=== PATIENT | female | born 1950 | race American Indian/Alaskan Native ===

== ENCOUNTER 2017-03-27 09:51 | Outpatient (CLI) | payer MEDICAID ==
--- NOTE | 2017-03-27 10:40 | Cat Scan Report ---
Cranial CT without contrast. History: Breast cancer. Findings: There is mild cerebellar atrophy. Otherwise the posterior fossa is unremarkable. The ventricles are normal in size and contour. There are no masses or extra-axial collections. Mild cortical atrophy is present. The calvarium is intact. Impression: Cerebral and cerebellar atrophy are described. No mass lesions are identified although small metastatic foci can be undetectable without intravenous contrast.
== END 2017-03-27 09:52 | disposition home or self-care (01) ==
LOC: CT 09:51
PROVIDERS: ATTEND Internal Medicine
DX: F03.90 Unspecified dementia, unspecified severity, without behavioral disturbance, psychotic disturbance, mood disturbance, and anxiety (principal); G31.89 Other specified degenerative diseases of nervous system; R56.9 Unspecified convulsions; C50.819 Malignant neoplasm of overlapping sites of unspecified female breast; Z91.81 History of falling
CPT/HCPCS: 70450

== ENCOUNTER 2018-05-13 16:55 | Emergency (ER) | payer MEDICARE, MEDICAID ==
[~2018-05-13 16:55] MED LIST: ADRENALIN ONE; SODIUM BICARBONATE IV ONE
--- NOTE | 2018-05-13 17:28 | Emergency Department Report ---
ED CPR HPI - General Chief Complaint: Cardiac Arrest/CPR Stated Complaint: CARDIAC Time Seen by Provider: 05/13/18 17:00 Source: EMS Mode of arrival: Stretcher Limitations: No Limitations - History of Present Illness Initial Comments: 67-year-old female presents to the emergency department via EMS from her [facility], [place], and cardiac arrest. EMS says that they feel the patient may have been down for a while prior to her being found and before EMS was called but this is unconfirmed. The patient was pulseless when they arrived and found to be in asystole. They placed a Combitube but arrived saying they were concerned for positioning as they felt the abdomen was getting distended. She was given 2 rounds of epinephrine and ACLS protocol was done including chest compressions and bag valve ventilation. EMS says that the patient occasionally would have PEA but then would go back to asystole and there was no obvious return of spontaneous circulation. The patient has a history, listed in her records, of GERD, breast cancer status post chemotherapy many years ago, dementia. - Related Data Home Medications Medication Instructions Recorded Confirmed Last Taken Acetaminophen [Acetaminophen TAB] 650 mg PO Q6HR PRN 02/27/18 02/27/18 Unknown Aspirin [Aspirin BABY CHEW TAB] 81 mg PO QDAY 02/27/18 02/27/18 Unknown Benztropine [Cogentin] 1 mg PO Q12H 02/27/18 02/27/18 Unknown Ferrous Sulfate [Iron] 325 mg PO DAILY 02/27/18 02/27/18 Unknown Folic Acid [Folvite] 1 mg PO QDAY 02/27/18 02/27/18 Unknown Lactulose [Constulose] 30 ml PO QAM 02/27/18 02/27/18 Unknown Levothyroxine [Synthroid] 25 mcg PO QDAY 02/27/18 02/27/18 Unknown Olanzapine [Zyprexa] 2.5 mg PO HS 02/27/18 02/27/18 Unknown levETIRAcetam [Keppra TAB] 1,000 mg PO BID 02/27/18 02/27/18 Unknown Previous Rx's Medication Instructions Recorded Last Taken Type Multivitamin Tab W-MINERAL 1 each PO DAILY tablet 03/03/18 Unknown Rx [Multiple Vitamin/Mineral (Theragran M)] OLANzapine [ZyPREXA] 2.5 mg PO HS tablet 03/03/18 Unknown Rx OXcarbazepine [Trileptal] 75 mg PO BID tablet 03/03/18 Unknown Rx Rivastigmine [Exelon Patch 4.6 mg TD Q24HR patch 03/03/18 Unknown Rx 4.6mg/24hr] medroxyPROGESTERone ACETATE 10 mg PO QDAY tablet 03/03/18 Unknown Rx [Provera] Ondansetron [Zofran Odt] 4 mg PO Q8H PRN #30 tab.rapdis 03/11/18 Unknown Rx traMADol [Ultram 50 MG tab] 50 mg PO Q6H PRN #14 tablet 03/11/18 Unknown Rx Allergies Allergy/AdvReac Type Severity Reaction Status Date / Time No Known Allergies Allergy Unverified 05/31/15 12:14 ED Review of Systems ROS: Stated complaint: CARDIAC Other details as noted in HPI Unable to obtain review of systems secondary to patient's acute medical condition. Comment: Unobtainable due to pts medical conditions ED Past Medical Hx - Past Medical History Hx GERD: Yes Hx Psychiatric Treatment: Yes (Schizophrenia) Additional medical history: Anemia, hypothyroidism, cataract, Dementia - Surgical History Additional Surgical History: Left Port-a-Cath, Mastectomy (L) - Social History Smoking Status: Never Smoker - Medications Home Medications: Home Medications Medication Instructions Recorded Confirmed Last Taken Type Acetaminophen [Acetaminophen TAB] 650 mg PO Q6HR PRN 02/27/18 02/27/18 Unknown History Aspirin [Aspirin BABY CHEW TAB] 81 mg PO QDAY 02/27/18 02/27/18 Unknown History Benztropine [Cogentin] 1 mg PO Q12H 02/27/18 02/27/18 Unknown History Ferrous Sulfate [Iron] 325 mg PO DAILY 02/27/18 02/27/18 Unknown History Folic Acid [Folvite] 1 mg PO QDAY 02/27/18 02/27/18 Unknown History Lactulose [Constulose] 30 ml PO QAM 02/27/18 02/27/18 Unknown History Levothyroxine [Synthroid] 25 mcg PO QDAY 02/27/18 02/27/18 Unknown History Olanzapine [Zyprexa] 2.5 mg PO HS 02/27/18 02/27/18 Unknown History levETIRAcetam [Keppra TAB] 1,000 mg PO BID 02/27/18 02/27/18 Unknown History Multivitamin Tab W-MINERAL 1 each PO DAILY tablet 03/03/18 Unknown Rx [Multiple Vitamin/Mineral (Theragran M)] OLANzapine [ZyPREXA] 2.5 mg PO HS tablet 03/03/18 Unknown Rx OXcarbazepine [Trileptal] 75 mg PO BID tablet 03/03/18 Unknown Rx Rivastigmine [Exelon Patch 4.6 mg TD Q24HR patch 03/03/18 Unknown Rx 4.6mg/24hr] medroxyPROGESTERone ACETATE 10 mg PO QDAY tablet 03/03/18 Unknown Rx [Provera] Ondansetron [Zofran Odt] 4 mg PO Q8H PRN #30 tab.rapdis 03/11/18 Unknown Rx traMADol [Ultram 50 MG tab] 50 mg PO Q6H PRN #14 tablet 03/11/18 Unknown Rx ED Physical Exam - General Limitations: No Limitations - Other Other exam information: GENERAL: Patient is ill-appearing and unresponsive. HENT: Normocephalic. Atraumatic. Patient has moist mucous membranes. EYES: Pupils are fixed and dilated. NECK: Supple. Trachea appears midline. CHEST/LUNGS: There are no spontaneous respirations. HEART/CARDIOVASCULAR: There are no spontaneous heart sounds. ABDOMEN: Abdomen is soft but there is mild abdominal distention. SKIN: Skin is cool but dry. NEURO: Unresponsive. Does not withdraw to painful stimuli. Does not follow any commands. MUSCULOSKELETAL: There is no obvious deformity. There is no evidence of acute injury. No palpable femoral or radial pulses. - Intubation Time Out Performed: No Sedative: none Laryngoscope: other (glydescope) Size: 4 ET Tube Size: 7.5 Tube Secured Depth (cm): 24 Tube Secured Location: lips Tube Placement Confirmation: visualized tube passing t, equal breath sounds bilat, confirmation by capnometr Intubation Complications: none ED Medical Decision Making - Medical Decision Making Patient came in pulseless, and cardiac arrest, with ACLS protocol underway. As soon as the patient got into room 19, she was switched over to the ER bed/ gurney and chest compressions were continued. She received bag valve ventilation through the Combitube. Since EMS did not feel confident it was in the correct position, and since breath sounds were hard to auscultate, I decided to remove the Combitube and orotracheally intubate the patient. I did this using the glydescope and there were no complications and it was done expediently. Afterwards there was condensation within the tube, color change capnography and bilateral breath sounds heard with bag valve ventilation. As soon as the patient was placed on the monitor she appeared to be in PEA. She immediately received epinephrine. At the first pulse check, the patient still appeared pulseless and was PEA on the monitor. She received another round of epinephrine and one of sodium bicarbonate and chest compressions continued. At the second pulse check, patient was pulseless and asystolic. At this time I used a bedside ultrasound to look at the heart and there was no movement at all. It is unknown how long the patient was pulseless and total but it had at least been 20 minutes or so between EMS and the emergency Department. Her pupils were fixed and dilated. There are no palpable pulses. No spontaneous breath or heart sounds. Time of was called at 1643. The patient's sister showed up and I sat down with her to discuss the patient's presentation and expiration. She was given an opportunity to come back and see the patient. Critical Care Time: Yes Critical care time in (mins) excluding proc time.: 15 Critical care attestation.: If time is entered above; I have spent that time in minutes in the direct care of this critically ill patient, excluding procedure time. Critical care time spent on this patient during her initial evaluation, supervision of ACLS protocol and discussion with the patient's sister. This does not include time spent doing the intubation procedure. Critical Care Time: 15 minutes ED Disposition Clinical Impression: Cardiac arrest Disposition: [id number] Is pt being admited?: No Time of Disposition: 18:49
== END 2018-05-13 18:30 ==
LOC: ED 16:55
DX: I46.9 Cardiac arrest, cause unspecified (principal); K21.9 Gastro-esophageal reflux disease without esophagitis; F20.9 Schizophrenia, unspecified; D64.9 Anemia, unspecified; F03.90 Unspecified dementia, unspecified severity, without behavioral disturbance, psychotic disturbance, mood disturbance, and anxiety; Z79.82 Long term (current) use of aspirin
CPT/HCPCS: 31500; 92950; 99285; J0171